=== PATIENT | male | born 1960 | race Caucasian/White ===

== ENCOUNTER 2017-10-19 15:14 | Emergency (ER) | payer MEDICARE, MEDICAID ==
[~2017-10-19] VITALS: Ht 180.3 cm; Wt 117.9 kg
[2017-10-19] MEDS ORDERED: PAXIL10 MG PO (15:30)
[2017-10-19] MEDS ORDERED: CLONAZEPAM 0.50.5 M1 PO (15:31)
[2017-10-19] MEDS ORDERED: ZYPREXA 10 MG T10 MG PO (15:31)
[2017-10-19] MEDS ORDERED: TENORMIN50 MG PO (15:32)
[2017-10-19 15:48] LABS: URINE BILIRUBIN NEGATIVE (Negative); URINE BLOOD NEGATIVE (Negative); URINE CLARITY CLEAR; URINE COLOR YELLOW; URINE GLUCOSE-RANDOM NEGATIVE (Negative); URINE KETONES NEGATIVE (Negative); URINE LEUKOCYTES-REFLEX NEGATIVE (Negative); URINE NITRITE-REFLEX NEGATIVE (Negative); URINE PROTEIN NEGATIVE (Negative); URINE SPECIFIC GRAVITY <= 1.005 (1.005-1.030); URINE UROBILINOGEN 0.2 E.U./dl (0.2-1.0)
[2017-10-19] MEDS ORDERED: NAPROSYN500 MG PO (15:57)
[2017-10-19] MEDS ORDERED: FLEXERIL PO (15:57)
[2017-10-19 16:05] VITALS: BP 131/77
== END 2017-10-19 16:05 | disposition home or self-care (01) ==
LOC: M.ERS 15:14
PROVIDERS: Physician Assistant
DX: M54.5 Low back pain (principal); I10 Essential (primary) hypertension; F41.9 Anxiety disorder, unspecified; F32.9 Major depressive disorder, single episode, unspecified; F17.210 Nicotine dependence, cigarettes, uncomplicated

== ENCOUNTER 2018-01-09 18:31 | Emergency (ER) | payer MEDICARE, MEDICAID ==
[~2018-01-09] VITALS: Ht 177.8 cm; Wt 113.4 kg
[~2018-01-09 18:31] MED LIST: CLONAZEPAM 0.50.5 M1 PO; FLEXERIL PO; NAPROSYN500 MG PO; PAXIL10 MG PO; TENORMIN50 MG PO; ZYPREXA 10 MG T10 MG PO
[2018-01-09] MEDS ORDERED: ZOCOR20 MG PO (19:04)
[2018-01-09 19:16] LABS: ABSOLUTE BASOPHILS 0.1 thou/uL (0.0-0.2); ABSOLUTE EOSINOPHILS 0.2 thou/uL (0.0-0.7); ABSOLUTE LYMPHOCYTES 2.5 thou/uL (0.8-5.3); ABSOLUTE MONOCYTES 0.6 thou/uL (0.0-1.2); ABSOLUTE NEUTROPHILS 6.6 thou/uL (1.6-8.1); BASOPHILS 0.7 %; EOSINOPHILS 1.6 %; HEMATOCRIT 45.3 % (42.0-52.0); HEMOGLOBIN 15.2 gm/dL (14.0-18.0); LYMPHOCYTES 24.9 %; MCHC 33.6 g/dL (28.0-37.0); MCV 92.2 fL (80.0-100.0); MONOCYTES 5.9 %; MPV 8.8 fl. (7.2-11.1); NUCLEATED RBCS 0 /100WBC; PLATELET COUNT* 182 thou/uL (150-400); POLYS 66.9 %; RBC 4.92 mil/uL (4.50-6.00); RDW-CV 13.4 % (10.5-14.5); WBC 9.8 thou/uL (4.0-11.0)
[2018-01-09 19:30] LABS: URINE BILIRUBIN NEGATIVE (Negative); URINE BLOOD NEGATIVE (Negative); URINE CLARITY CLEAR; URINE COLOR YELLOW; URINE GLUCOSE-RANDOM NEGATIVE (Negative); URINE KETONES NEGATIVE (Negative); URINE LEUKOCYTES-REFLEX NEGATIVE (Negative); URINE NITRITE-REFLEX NEGATIVE (Negative); URINE PROTEIN NEGATIVE (Negative); URINE SPECIFIC GRAVITY <= 1.005 (1.005-1.030); URINE UROBILINOGEN 0.2 E.U./dl (0.2-1.0)
[2018-01-09 19:31] LABS: CREATININE 1.2 mg/dL (0.6-1.3); POTASSIUM 3.9 mmol/L (3.5-5.1)
[2018-01-09 19:36] LABS: ALBUMIN 3.4 g/dL (3.4-5.0); TOTAL BILIRUBIN 0.3 mg/dL (<0.1-1.0)
[2018-01-09 19:53] LABS: AMP/METHAMP Negative (Negative); BARBITURATES Negative (Negative); BENZODIAZEPINES Negative (Negative); COCAINE Negative (Negative); METHADONE Negative (Negative); OPIATES Negative (Negative); PCP Negative (Negative); THC Negative (Negative)
[2018-01-09 20:18] VITALS: BP 167/92
--- NOTE | 2018-01-10 10:50 | EKG ---
[place] [address] ELECTROCARDIOGRAM REPORT Name: CHRISELISA CHACON Charan Room: [facility]#: [id number] Admission: 01/09/18 Attend Phys: Discharge: 01/09/18 Date of : 62 Report #: [id number] THIS REPORT FOR: //name// [facility] ED Test Date: 2018-01-09 Test Time: 19:12:07 Pat Name: ELISA LOVE Department: Room: Gender: M [employer] Operations Manager: MAK : 1960 Requested By: Tc Cooper Order Number: [id number] MD: Pramod Coffman Measurements Intervals [place] Rate: 75 P: 43 SC: 167 QRS: 53 QRSD: 87 T: 51 QT: 384 QTc: 429 Interpretive Statements Sinus rhythm No previous ECG available for comparison Electronically Signed On 01-10-2018 10:50:21 CDT by Pramod Coffman [email or web address] <ELECTRONICALLY SIGNED> By: Pramod Coffman MD, [facility] 01/10/18 1050 191 11 Pramod Coffman MD, FACC /EPI
== END 2018-01-09 20:19 | disposition home or self-care (01) ==
LOC: M.ERS 18:31
PROVIDERS: Nurse Practitioner Family
DX: K52.9 Noninfective gastroenteritis and colitis, unspecified (principal); I10 Essential (primary) hypertension; F41.9 Anxiety disorder, unspecified; F32.9 Major depressive disorder, single episode, unspecified; F17.210 Nicotine dependence, cigarettes, uncomplicated